=== PATIENT | male | born 1955 | race Caucasian/White ===

== ENCOUNTER 2021-03-09 16:04 | Emergency (ER) | payer OTHER, MEDICARE | END 2021-03-09 17:54 | disposition home or self-care (01) | LOC: BURERS 16:04 | DX: S90.02XA Contusion of left ankle, initial encounter (principal); E11.9 Type 2 diabetes mellitus without complications; I10 Essential (primary) hypertension; W22.8XXA Striking against or struck by other objects, initial encounter ==

== ENCOUNTER 2021-06-12 12:57 | Emergency (ER) | payer OTHER, MEDICARE | END 2021-06-12 13:28 | disposition home or self-care (01) | LOC: BURERS 12:57 | DX: S46.211A Strain of muscle, fascia and tendon of other parts of biceps, right arm, initial encounter (principal); E11.9 Type 2 diabetes mellitus without complications; I10 Essential (primary) hypertension; X50.0XXA Overexertion from strenuous movement or load, initial encounter | CPT/HCPCS: 99283 ==

== ENCOUNTER 2025-01-07 21:53 | Emergency (ER) | payer MEDICARE | END 2025-01-07 23:06 | disposition home or self-care (01) | LOC: BURERS 21:53 | DX: S90.121A Contusion of right lesser toe(s) without damage to nail, initial encounter (principal); E11.9 Type 2 diabetes mellitus without complications; I10 Essential (primary) hypertension; W20.8XXA Other cause of strike by thrown, projected or falling object, initial encounter; Z79.84 Long term (current) use of oral hypoglycemic drugs; Z79.899 Other long term (current) drug therapy | CPT/HCPCS: 99283 ==